=== PATIENT | male | born 1940 | race Caucasian/White ===

== ENCOUNTER 2017-01-14 09:32 | Emergency (ER) | payer OTHER ==
[2017-01-14 10:03] VITALS: BP 127/56
--- NOTE | 2017-01-14 10:04 | ED Physician Documentation ---
Male Genitourinary Problems - HISTORIAN Historian: patient - HPI Stated Complaint: dysuria Chief Complaint: Male Genitourinary Problems Additional Information: burning with and without urination, frequency, urgency, oligoria. no prev episodes. no fever or abdominal pain complaints. Onset: days ago Duration: continues in ED Context: denies: drug use, lifting, trauma, recent surgery Severity: mild Further Comments: no - Associated Symptoms Problems Urinating: frequent urination, discomfort w/ urination, burning w/ urination, urgency w/ urination. denies: blood in urine Testicular Pain: none Testicular Swelling: none Penile Pain: No Penile Swelling: No Inguinal Mass: No Flank Pain: none Abdominal Pain: none - Sexual History Sexual History: non-contributory - ROS CONST: none GI/: denies: nausea, vomiting MS/SKIN/LYMPH: none CVS/RESP: none EYES/ENT: none NEURO/PSYCH: denies: fainting - PAST HX Past History: denies: bladder infection, prostate infection, kidney stones, hypertension Cardiac Disease: none Surgeries/Procedures: none - SOCIAL HX Smoking History: non-smoker Alcohol Use: occasionally Drug Use: none - FAMILY HX Family History: none - REVIEWED ASSESSMENTS Nursing Assessment Reviewed: Yes Vitals Reviewed: Yes ED Results Lab/Radiology - Lab Results Lab Results: positive nitries positive bood positive luekocytes - Orders Orders: ED Orders Category Date Time Status UA W MICRO [UA W/MICRO IF INDICATED] Routine Lab 01/14/17 09:59 Ordered Male Genitourinary Problems - EXAM General Appearance: no acute distress, alert Abdomen: non-tender EENT: ENT inspection normal Neck: nml inspection Respiratory: no resp distress Back: non-tender Extremities: non-tender Neuro/Psych: oriented X3 Skin: warm/dry Discharge Clincal Impression: UTI (urinary tract infection), bacterial, Hypovolemia Referrals: Primary Doctor,No [Primary Care Provider] - 2 Days Condition: Good Disposition: 01 HOME, SELF-CARE Decision to Admit: NO Date of Decison to Admit: 01/14/17 Decision Time: 10:04
[2017-01-15 05:40] LABS: APPEARANCE,URINE CLOUDY (CLEAR); COLOR,URINE YELLOW (YELLOW); OCCULT BLOOD,URINE 2+ (NEGATIVE); PH URINE 5.5 (5.0 - 8.0)
== END 2017-01-14 10:15 | disposition home or self-care (01) ==
LOC: ED 09:32
DX: N39.0 Urinary tract infection, site not specified (principal)
CPT/HCPCS: 81002; 87086; 87186; 99283

== ENCOUNTER 2017-01-17 07:54 | Emergency (ER) | payer OTHER ==
--- NOTE | 2017-01-17 08:06 | ED Physician Documentation ---
General Adult - HISTORIAN Historian: patient - HPI Chief Complaint: Male Urogenital Problems Onset: days ago (3 days) Timing: still present Further Comments: yes (Patient is currently under treatment for a bladder infection. Was started on Bactrim and Azo two days ago. Urine appears to have some blood in it. Is still running a fever to 101.8 this AM. Vomited 2 times yesteerday. Has a loss of appetite. No chills. Having some mild dysuria, is still having some frequency. Having a lot of urgency. No back pain. Has a hx of BPH s/p TURP.) - ROS CONST: fever. denies: chills - PAST HX Past History: A-Fib (s/p ablation and is NSR at this time), other ( hyperlipidemia) Other History: none Surgeries/Procedures: other (TURP, CABG of 4 vessels) Allergies/Adverse Reactions: Allergies Allergy/AdvReac Type Severity Reaction Status Date / Time No Known Allergies Allergy Verified 01/17/17 08:15 Home Medications: Ambulatory Orders Medication Instructions Recorded Rosuvastatin Calcium [Crestor] 10 mg PO DAILY 01/14/17 Ciprofloxacin HCl [Cipro] 500 mg PO BID #14 tablet 01/17/17 Phenazopyridine HCl [Pyridium] 200 mg PO BID 01/17/17 - SOCIAL HX Smoking History: non-smoker Alcohol Use: rarely Drug Use: none - FAMILY HX Family History: Yes - VITAL SIGNS Vital Signs: Vital Signs Temp Pulse Resp BP Pulse Ox 127/56 01/14/17 09:35 - REVIEWED ASSESSMENTS Nursing Assessment Reviewed: Yes Vitals Reviewed: Yes General Adult Physical Exam - PHYSICAL EXAM GENERAL APPEARANCE: mild distress NECK: normal inspection, supple. No: lymphadenopathy RESPIRATORY: no resp distress, chest non-tender, breath sounds normal. No: wheezes, rales, rhonchi CVS: reg rate & rhythm, heart sounds normal, equal pulses, no murmur, no gallop ABDOMEN: soft, no organomegaly, normal bowel sounds, no abdominal bruit, no distension, non-tender BACK: no CVA tenderness SKIN: warm/dry, normal color NEURO: oriented X3, mood/affect nml, cognition normal Discharge Clincal Impression: UTI (urinary tract infection), bacterial Prescriptions: Ciprofloxacin HCl [Cipro] 500 mg PO BID #14 tablet Referrals: Primary Doctor,No [Primary Care Provider] - 2 Days Additional Instructions: Stop Bactrim. (Big white pill) Drink a lot of fluids. Take Cipro twice a day as directed. If not improving by Monday or Monday to be seen again. Watch for fever or chllls. Take a porbioitc. Home Medications: Ambulatory Orders Rosuvastatin Calcium [Crestor] 10 mg PO DAILY 01/14/17 Ciprofloxacin HCl [Cipro] 500 mg PO BID #14 tablet 01/17/17 Phenazopyridine HCl [Pyridium] 200 mg PO BID 01/17/17 Condition: Stable Disposition: 01 HOME, SELF-CARE Decision to Admit: NO Date of Decison to Admit: 01/17/17 Decision Time: 09:38
[2017-01-17 08:51] LABS: APPEARANCE,URINE Cloudy (CLEAR); COLOR,URINE Amber (YELLOW); OCCULT BLOOD,URINE 1+ (NEGATIVE); UROBILINOGEN URINE >=8.0 Eu (0.2-1.0)
[2017-01-17 08:52] LABS: BASOPHILS % 0.2 (0.0-1.5); EOSINOPHILS % 0.3 % (0.0-6.8); MEAN CORPUSCULAR VOLUME 93.8 fl (80.0-100.0); MONOCYTES % 7.1 % (0.0-11.0); NEUTROPHILS # 9.4 # k/uL (1.4-7.7)
[2017-01-17 08:57] LABS: AMORPHOUS SEDIMENT,UR FEW (NEGATIVE)
[2017-01-17 09:12] LABS: eGFR (African) > 60; eGFR (Non-African) > 60
[2017-01-17 09:47] VITALS: BP 120/58
== END 2017-01-17 09:45 | disposition home or self-care (01) ==
LOC: ED 07:54
DX: N39.0 Urinary tract infection, site not specified (principal)
CPT/HCPCS: 80053; 81002; 85025; 87086; 99283